=== PATIENT | female | born 1990 | race Two or more races ===

== ENCOUNTER 2018-08-02 01:15 | Inpatient (IN) | payer OTHER ==
[~2018-08-02] VITALS: Ht 160 cm; Wt 81.6 kg
[2018-08-02 04:30] VITALS: BP 101/59
--- NOTE | 2018-08-02 04:30 | NUR ---
TELE 1 RN NOTE PT ARRIVED FROM [place] A DIRECT ADMIT. A/O X 4, NO SOB, NO DISTRESS OR DISCOMFORT NOTED. DENIES PAIN AT THIS TIME. RT BREAST WITH REDNESS NOTED. TOOK PICTURE AND PLACE IT IN THE CHART. PT IS ALSO NOTED WITH HIGH FEVER 101.8. BODY COOLING MEASURE APPLIED. TABLE FAN PROVIDED. WAITING FOR MATTHEW VEGETABLE THINNER ADMITTING ORDERS. CHARGE NURSE PAGED THE VEGETABLE THINNER FOR THE ORDERS. ORIENTED THE PT TO HER ROOM. SIDE RAILS UP X 2 AND CALL LIGHT WITHIN REACH. CONTINUE TO MONITOR HER.
--- NOTE | 2018-08-02 04:30 | NUR ---
ADVERTISING PRODUCTION MANAGER NOTE ON TELE MONITOR S TECH 113.
[2018-08-02] MEDS ORDERED: MORPHINE SULFATE INJ 2 MG/ML DISP.SYRIN IV PRN (05:00)
[2018-08-02] MEDS ORDERED: ZOLPIDEM TARTRATE 5 MG TABLET PO PRN (05:00)
[2018-08-02] MEDS ORDERED: HYDROCODONE/APAP 5/325MG 1 EACH TABLET PO PRN (05:00)
[2018-08-02] MEDS ORDERED: MAGNESIUM HYDROXIDE 30 ML UDC PO PRN (05:00)
[2018-08-02] MEDS ORDERED: Z GUARD REMEDY 2 OZ OINT TP PRN (05:00)
[2018-08-02] MEDS ORDERED: ONDANSETRON HCL/PF 4 MG/2 ML VIAL IVP PRN (05:00)
[2018-08-02] MEDS ORDERED: MAG HYDROX/AL HYDROX/SIMETH 30 ML UDC PO PRN (05:00)
[2018-08-02] MEDS ORDERED: HYDROCODONE/APAP 10/325MG 1 EA TABLET PO PRN (05:00)
--- NOTE | 2018-08-02 05:10 | NUR ---
ASIM RN NOTE ADMITTED DIRECT ADMIT PT FROM [place] WITH THE DX OF R/O MENINGITIS BY BENJAMIN CASTRO. PT SHOW NO DISTRESS. TEMP CAME DOWN TO 99.6. CONTINUE TO MONITOR HER.
[2018-08-02 06:24] LABS: BASOPHILS % (AUTO) 0.1 % (0.0-2.0); EOSINOPHILS % (AUTO) 0.2 % (0.0-6.0); HEMATOCRIT 37 % (33-45); HEMOGLOBIN 12.7 g/dL (11.5-14.8); LYMPHOCYTES % (AUTO) 10.6 % (20.0-44.0); MEAN CORPUSCULAR HEMOGLOBIN 30 PG (26.0-33.0); MEAN CORPUSCULAR HGB CONC 35 g/dl (31.0-36.0); MEAN CORPUSCULAR VOLUME 88 fL (82-100); MONOCYTES # (AUTO) 0.7 /CMM (0.1-1.30); MONOCYTES % (AUTO) 7.6 % (2.0-12.0); NEUTROPHILS # (AUTO) 7.3 /CMM (1.8-8.9); NEUTROPHILS % (AUTO) 81.5 % (43.0-81.0); PLATELET COUNT (AUTO) 198 /CMM (150-450); RDW COEFFICIENT OF VARIATION 11.5 (11.5-15.0); RED BLOOD CELL COUNT(AUTO) 4.19 MIL/uL (4.0-5.2)
[2018-08-02 06:33] LABS: CALCIUM, SERUM 8.2 mg/dL (8.5-10.1); CREATININE 0.7 mg/dL (0.6-1.3); POTASSIUM 3.4 mmol/L (3.5-5.1)
[2018-08-02 06:46] LABS: ALBUMIN 3.5 g/dL (3.4-5.0); BILIRUBIN,TOTAL 0.4 mg/dL (0.2-1.0); MAGNESIUM 1.8 mg/dL (1.8-2.4); PHOSPHORUS 3.5 mg/dL (2.5-4.9); TOTAL PROTEIN, SERUM 7.3 g/dL (6.4-8.2)
[2018-08-02 06:48] LABS: THYROID STIMULATING HORMONE 1.004 uIU/mL (0.358-3.74)
--- NOTE | 2018-08-02 07:05 | NUR ---
ASIM RN NOTE REPORT GIVEN TO BETTY SANDHU FOR CONTNUE TO CARE. AND GIVE ATB ORDERED. ALSO GET THE CONSENT FOR MRI.
--- NOTE | 2018-08-02 07:09 | NUR ---
MRI APPROVED, TEXTED SHEAR HELPER FOR ETA.
[2018-08-02] MEDS: IV NS 0.9% 1,000 ML IV PRN (07:13)
[2018-08-02 08:00] VITALS: BP 92/58
[2018-08-02] MEDS ORDERED: CEFTRIAXONE 1 G in IV D5W 50 ML IV SCH (08:00)
[2018-08-02] MEDS ORDERED: GADODIAMIDE 5 MMOL/10 ML VIAL IJ ONE (08:36)
[2018-08-02] MEDS: PANTOPRAZOLE 40 MG TABLET.DR PO SCH (09:18)
[2018-08-02] MEDS: ACETAMINOPHEN 325 MG TABLET PO PRN ×3 (09:33→23:02)
[2018-08-02] MEDS ORDERED: FEE PK DOSING 1 MIN EA MC ONE (09:36)
[2018-08-02] MEDS: ACYCLOVIR IV 500 MG in IV D5W 100 ML IV SCH ×2 (11:41→18:41)
[2018-08-02 12:00] VITALS: BP 100/56
--- NOTE | 2018-08-02 12:24 | NUR ---
RN Note: (ALLERGY TO VANCOMYCIN/VANCOMYCIN ADMINISTRATION) PATIENT VERBALIZE THAT SHE DEVELOPS ITCHING, BURNING & RASH GENERALIZED BODY, WAS VERY DISCOMFORT AFTER VANCOMYCIN STARTED AT [facility] BEFORE TRANSFER TO [facility]. BENADRYL WAS GIVEN, WAS EFFECTIVE. DR. FLAHERTY IS AWARE ABOUT ALLERGY BY [facility] PHARMACIST, PER LUZ BOSTON TO GIVE MD ORDERED. WILL ADMINISTER BENADRYL PRIOR TO VANCO ADMINISTRATION. WILL MONITOR CLOSELY FOR ADVERSE RXNS. PATIENT IS AGREE WITH PLAN.
[2018-08-02] MEDS: diphenhydrAMINE HCL ELIX 25 MG/10 ML UDC PO PRN ×2 (12:35→21:45)
[2018-08-02] MEDS ORDERED: VANCOMYCIN 1.25 GM in IV D5W 500 ML IV SCH ×4 (13:00)
[2018-08-02] MEDS ORDERED: POTASSIUM CHLORIDE 20 MEQ TAB.PRT.SR PO SCH (14:00)
--- NOTE | 2018-08-02 14:00 | NUR ---
TEL nurse , no signs of reaction noted from vancomycin at present time, made patient comfortable call light with in reach
[2018-08-02 16:00] VITALS: BP_SYST 102; BP_SYST 105; BP_DIAS 69
[2018-08-02] MEDS: CEFTRIAXONE 2 G in IV D5W 100 ML IV SCH (17:54)
--- NOTE | 2018-08-02 18:21 | NUR ---
RN NOTE: PATIENT REMAINS ALERT AWAKE ORIENTED X 4. ON ROOM AIR, NO BREATHING DIFFICULTY NOTED. DISCOMFORT TO RIGHT BREAST & NIPPLE. NO OPEN SKIN NOTED. REDNESS ONLY. MRI LUMBER DONE TODAY, PLAN FOR LUMBER PUNCTURE TOMORROW. VANCOMYCIN IV TOLERATED WELL. NO ADVERSE REACTION NOTED. MRSA SWAB & URINE SAMPLE COLLECTED & SEND TO LAB FOR PREG TEST, URINALYSIS. URINE CULTURE. HIGH TEMP, TYLENOL WAS GIVEN ORDERED. NOTED EFFECTIVE. CALL LIGHT WITHIN REACH. WILL CONTINUE TO MONITOR.
[2018-08-02 18:44] LABS: APPEARANCE,URINE SL CLOUDY (CLEAR); BILIRUBIN,URINE NEGATIVE (NEGATIVE); BLOOD, URINE TRACE-INTA Ery/uL (NEGATIVE); COLOR,URINE YELLOW (YELLOW); KETONES,URINE NEGATIVE (NEGATIVE); LEUKOCYTE ESTERASE ,URINE TRACE (NEGATIVE); NITRITE, URINE NEGATIVE (NEGATIVE); PH,URINE 6.5 (5.0-8.0); PROTEIN,URINE NEGATIVE (NEGATIVE); UGLUCOSE NEGATIVE (NEGATIVE); UROBILINOGEN,URINE 0.2 EU/dL (0.2)
[2018-08-02 19:29] LABS: BACTERIA,URINE Few /HPF (None Seen); RBC,URINE 0-2 /HPF (0-2); SQUAMOUS EPITHELIAL CELL,UR Few /HPF (None Seen)
[2018-08-02 20:00] VITALS: BP 98/44
--- NOTE | 2018-08-02 20:00 | NUR ---
TELE 1 RN NOTE PT IN BED ASLEEP, EASILY AROUSABLE. PT GAVE CONSENT FOR AM PROCEDURE. NO DISTRESS OR DISSCOMFORT NOTED. DENIES PAIN. LAC # 20 G S/L INTACT AND PATENT. ALL NEEDS ATTENDED. AT BED SIDE. SIDE RAILS UP X 2 AND CALL LIGHT WITHIN REACH. VSS. CONTINUE TO MONITOR HER. NO FEVER AT THIS TIME. ON TELE MONITOR ST HR 112.
[2018-08-02] MEDS: VANCOMYCIN 1 GM in IV D5W 250 ML IV SCH (21:43)
--- NOTE | 2018-08-02 21:45 | NUR ---
TELE 1 RN NOTE VANCO HUNGED AND ALSO GIVEN BENADRYL 25 MG PO FOR COMFORT FROM VANCO PER PT'S REQUEST.
--- NOTE | 2018-08-02 23:03 | NUR ---
TELE 1 RN NOTE PT IS RUNNING FEVER 103.1. BODY COOLING MEASURES APPLIED ALSO GIVEN TYLENOL 650 MG PO. CONTINUE TO MONITOR HER.
[2018-08-03] VITALS: BP 94/50
[2018-08-03] MEDS: ACYCLOVIR IV 500 MG in IV D5W 100 ML IV SCH ×3 (02:12→18:43)
[2018-08-03] MEDS: IV NS 0.9% 1,000 ML IV PRN (02:20)
[2018-08-03 04:00] VITALS: BP 100/58
[2018-08-03] MEDS: VANCOMYCIN 1 GM in IV D5W 250 ML IV SCH ×2 (05:00→13:00)
--- NOTE | 2018-08-03 05:23 | NUR ---
TELE 1 RN NOTE PT REFUSED PARAG ATShasha, STATES "I AM HAVING TEMP WITH THIS MED, KIND OF ALLERGIC REACTION". HELD THE MED AT THIS TIME. CHARGE NURSE ALSO MADE AWARE OF THAT.
[2018-08-03] MEDS: CEFTRIAXONE 2 G in IV D5W 100 ML IV SCH ×2 (05:25→18:42)
--- NOTE | 2018-08-03 06:59 | NUR ---
TELE 1 RN NOTE PT IN BED ASLEEP, EASILY AROUSABLE, NO DISTRESS OR DISCOMFORT NOTED, DENIES PAIN. NO FEVER NO ALL NEEDS ATTENDED. WILL ENDORSE TO DAY SHIFT NURSE FOR CONTINUE TO CARE.
[2018-08-03 07:10] LABS: CALCIUM, SERUM 8.6 mg/dL (8.5-10.1); CREATININE 0.7 mg/dL (0.6-1.3); MAGNESIUM 1.9 mg/dL (1.8-2.4); PHOSPHORUS 3.5 mg/dL (2.5-4.9); POTASSIUM 3.6 mmol/L (3.5-5.1)
[2018-08-03 07:38] LABS: EOSINOPHILS % (AUTO) 0.8 % (0.0-6.0); HEMATOCRIT 38 % (33-45); HEMOGLOBIN 12.7 g/dL (11.5-14.8); LYMPHOCYTES # (AUTO) 1.8 /CMM (0.8-4.8); LYMPHOCYTES % (AUTO) 17.4 % (20.0-44.0); MEAN CORPUSCULAR HEMOGLOBIN 30 PG (26.0-33.0); MEAN CORPUSCULAR HGB CONC 34 g/dl (31.0-36.0); MEAN CORPUSCULAR VOLUME 88 fL (82-100); MONOCYTES % (AUTO) 10.1 % (2.0-12.0); NEUTROPHILS # (AUTO) 7.2 /CMM (1.8-8.9); NEUTROPHILS % (AUTO) 71.7 % (43.0-81.0); PLATELET COUNT (AUTO) 200 /CMM (150-450); RDW COEFFICIENT OF VARIATION 11.5 (11.5-15.0); RED BLOOD CELL COUNT(AUTO) 4.28 MIL/uL (4.0-5.2); WHITE BLOOD COUNT (AUTO) 10.1 K/uL (4.3-11.0)
[2018-08-03 08:00] VITALS: BP 130/62
--- NOTE | 2018-08-03 08:15 | NUR ---
NOTE PT IN BED ASLEEP, EASILY AROUSABLE. AWAKE AN ORIENTED X3, ON ROOM AIR, BREATHING EVEN AND UNLABORED. NO SIGN OF DISTRESS, NO COMPLAINTS DISCOMFORT NOTED. PATIENT AMBULATORY. AFEBRILE AT 98.5 AT THIS TIME.ON TELEMONITOR, HR AT 90. LAC # 20 G S/L INTACT AND PATENTON FLUSHING. ENCOURAGED VERBALIZATION OF FEELINGS AND CONCERN. SIDE RAILS UP X 2. CALL LIGHT WITHIN REACH. WILL CONTINUE TO MONITOR
[2018-08-03] MEDS: PANTOPRAZOLE 40 MG TABLET.DR PO SCH (09:14)
[2018-08-03] MEDS ORDERED: LIDOCAINE HCL/PF 1% 30 ML SDV ONE (09:58)
--- NOTE | 2018-08-03 10:30 | NUR ---
RN NOTES PATIENT BROUGHT OT RADIOLOGY DEPARTMENT FOR THE SCHEDULED LUMBAR PUNCTURE. PATIENT ACCOMPANIED BT 2 RADIOLOGY PERSONNEL, NURSE AND .PATIENT ON ROOM AIR, NO COMPLAINTS OF DISTRESS OF ANY KIND. GIVEN MASK TO BE PLACED ON TRANSPORT.
--- NOTE | 2018-08-03 11:22 | NUR ---
RN NOTES PATIENT CAME BACKED, S/P LUMBAR PUNCTURE. LYING FLAT COMFORTABLY ON BED. ON STABLE CONDITION. BREATHING UNLABORED. NO COMPLAINTS OF PAIN. ENCOURAGED TO LIE FLAT IN BED FOR AT LEAST 2 HOURS. PATIENT COOPERATIVE. 4 TUBES OF CSF SAMPLES PROPERLY LABELED BROUGHT TO THE LABORATORY FOR CSF CULTURE AND GRAM STAINING.
[2018-08-03 12:00] VITALS: BP 107/60
[2018-08-03 12:16] LABS: CSF GLUCOSE 78 mg/dL (40-70); CSF PROTEIN 28.3 mg/dL (15-45)
--- NOTE | 2018-08-03 13:00 | NUR ---
RN NOTES PATIENT REFUSED THE ADMINISTRATION OF VANCOMYCIN. PER PATIENT MEDICINE CAUSES ITCH AND RASHES ON THE BODY. INFORMED DR HALEY AND ATTENDING - YAJAIRA LOZANO. RISK AND BENEFITS EXPLAINED TO THE PATIENT.
[2018-08-03 16:00] VITALS: BP 113/62
--- NOTE | 2018-08-03 17:00 | NUR ---
RN NOTES SEEN AND EXAMINED BY DR. HALEY. UPDATED ON THE PATIENT CONDITION AND INFORMED MD THAT PATIENT HAS BEEN REFUSING ADMINISTRATION OF VANCOMYCIN.
--- NOTE | 2018-08-03 19:33 | NUR ---
RN NOTES ENDORSED PATIENT FOR CONTINUITY OF CARE. NO ACUTE CHANGES WITHIN THE SHIFT. BREATHING UNLABORED. AFEBRILE. NO COMPLAINTS OF ANY KIND OF DISTRESS. ROCEPHIN STILL RUNNING. ALL NEEDS ATTENDED. CALL LIGHT WITHIN EASY REACH.BED LOW AND LOCKED
--- NOTE | 2018-08-03 19:45 | NUR ---
OPEN HEARTH LABORER NOTES: RECEIVED PT ON BED ALERT, AWAKE AND ORIENTED X4. ABLE TO MAKE NEEDS KNOWN. NO ACUTE DISTRESS NOTED. NO COMPLAINTS OF PAIN OR DISCOMFORT. ON ROOM AIR, SATURATING WELL. BREATHING EVEN AND UNLABORED WITH NORMAL RESPIRATIONS. ON TELE MONITOR SINUS RHYTHM HR 82BPM. IV ON LEFT FOREARM #24 INTACT AND PATENT, WITH IVF NS RUNNING AT 75ML/HR, INFUSING WELL. KEPT CLEAN, DRY AND COMFORTABLE. CALL LIGHT PLACED WITHIN REACH. SAFETY AND FALL PRECAUTIONS OBSERVED AND MAINTAINED. WILL CONTINUE TO MONITOR PT.
[2018-08-03 20:00] VITALS: BP 95/67
[2018-08-04] VITALS: BP 100/62
[2018-08-04] MEDS: IV NS 0.9% 1,000 ML IV PRN (00:03)
[2018-08-04 01:32] VITALS: BP 91/56
[2018-08-04 01:33] VITALS: BP 100/62
[2018-08-04 04:00] VITALS: BP 98/64
--- NOTE | 2018-08-04 06:30 | NUR ---
HEALTH INFORMATICS SPECIALIST NOTES: NO CHANGES NOTED THROUGHOUT THE SHIFT. DENIES PAIN AND DISCOMFORT AT THIS TIME. ON ROOM AIR, SATURATING WELL. SINUS RHYTHM ON TELE MONITOR HR 62BPM. ALL DUE MEDS GIVEN ORDERED AND WELL TOLERATED. KEPT CLEAN, DRY AND COMFORTABLE. SAFETY AND FALL PRECAUTIONS OBSERVED. CALL LIGHT PLACED WITHIN REACH. WILL ENDORSE TO DAY SHIFT NURSE FOR CONTINUITY OF CARE.
[2018-08-04] MEDS: PANTOPRAZOLE 40 MG TABLET.DR PO SCH (06:37)
[2018-08-04 06:41] LABS: CALCIUM, SERUM 8.7 mg/dL (8.5-10.1); CREATININE 0.6 mg/dL (0.6-1.3); PHOSPHORUS 4.4 mg/dL (2.5-4.9); POTASSIUM 3.9 mmol/L (3.5-5.1)
[2018-08-04 07:08] LABS: BASOPHILS % (AUTO) 0.4 % (0.0-2.0); EOSINOPHILS % (AUTO) 3.3 % (0.0-6.0); HEMATOCRIT 34 % (33-45); HEMOGLOBIN 11.6 g/dL (11.5-14.8); LYMPHOCYTES % (AUTO) 43.4 % (20.0-44.0); MEAN CORPUSCULAR HEMOGLOBIN 30 PG (26.0-33.0); MEAN CORPUSCULAR HGB CONC 34 g/dl (31.0-36.0); MEAN CORPUSCULAR VOLUME 88 fL (82-100); MONOCYTES # (AUTO) 0.5 /CMM (0.1-1.30); MONOCYTES % (AUTO) 11.1 % (2.0-12.0); NEUTROPHILS # (AUTO) 1.9 /CMM (1.8-8.9); NEUTROPHILS % (AUTO) 41.8 % (43.0-81.0); PLATELET COUNT (AUTO) 175 /CMM (150-450); RDW COEFFICIENT OF VARIATION 11.7 (11.5-15.0); RED BLOOD CELL COUNT(AUTO) 3.89 MIL/uL (4.0-5.2); WHITE BLOOD COUNT (AUTO) 4.6 K/uL (4.3-11.0)
[2018-08-04 08:00] VITALS: BP 98/55
--- NOTE | 2018-08-04 08:03 | NUR ---
RN NOTES: PT IN BED ASLEEP, EASILY AROUSABLE. AWAKE AN ORIENTED X4, ON ROOM AIR, BREATHING EVEN AND UNLABORED. NO SIGN OF DISTRESS, NO COMPLAINTS DISCOMFORT NOTED. PATIENT AMBULATORY. AFEBRILE AT 97.5 AT THIS TIME.ON TELEMONITOR, HR AT 67BPM. L FOREARM # 24 G INTACT AND PATENT ON FLUSHING. WITH ONGOING IVF NS RUNNING AT 75CC/HR. ENCOURAGED VERBALIZATION OF FEELINGS AND CONCERN. SIDE RAILS UP X 2. CALL LIGHT WITHIN REACH. BED LOW AND LOCKED. WILL CONTINUE TO MONITOR
--- NOTE | 2018-08-04 10:57 | NUR ---
RN NOTES SEEN AND EXAMINED BY DR. BAUTISTA WITH ORDERS TO TRANSFER ACUITY FROM TELEMETRY TO MED-SURG. ORDER NOTED AND CARRIED OUT
[2018-08-04] MEDS: ACETAMINOPHEN 325 MG TABLET PO PRN (12:19)
--- NOTE | 2018-08-04 13:07 | NUR ---
RN NOTES SEEN AND EXAMINE BY YAJAIRA STILL MD WITH ORDER TO DISCHARGE PATIENT. ORDER NOTED AND CARRIED OUT.
--- NOTE | 2018-08-04 13:30 | NUR ---
RN NOTES PATIENT DISCHARGE AT THIS TIME. EXIT CARE DONE. ALL QUESTION AND CONCERNS ADDRESSED AND ATTENDED APPROPRIATELY. PICTURES TAKEN AND FILED. ALL BELONGINGS ACCOUNTED FOR AND GIVEN BACK TO PATIENT. ALL DISCHARGE MEDICATION GIVEN TO PATIENT. AT BEDSIDE DURING INSTRUCTION. PATIENT BROUGHT OUT TO HOSPITAL ROOM VIA WHEELCHAIR BY RN.
[2018-08-06 09:20] LABS: *WEST NILE VIRUS, IgG, SERUM Positive (Negative)
[2018-08-06 11:14] LABS: *WEST NILE VIRUS, IgM, SERUM Negative (Negative)
== END 2018-08-04 15:00 | disposition home or self-care (01) | DRG 720 ==
LOC: TELE1 04:20 → TELE-TD 06:31 → TELE1 09:49 → MEDSG1 08-04 10:56
PROVIDERS: ADMIT Registered Nurse; ATTEND Registered Nurse
PROC: 009U3ZX Drainage of Spinal Canal, Percutaneous Approach, Diagnostic (ICD-10-PCS; principal; 2018-08-03)
PROC: B01BYZZ Fluoroscopy of Spinal Cord using Other Contrast (ICD-10-PCS; principal; 2018-08-03)
DX: A41.9 Sepsis, unspecified organism (principal); G06.1 Intraspinal abscess and granuloma; G03.9 Meningitis, unspecified; L02.212 Cutaneous abscess of back [any part, except buttock and flank]; E87.6 Hypokalemia; N61.0 Mastitis without abscess; Z16.21 Resistance to vancomycin
CPT/HCPCS: 36415; 62270; 71045-TC; 72157-TC; 72158-TC; 80048-TC; 80053-TC; 80061-TC; 80202-TC; 81000-TC; 83540-TC; 83605-TC; 83735-TC; 84100-TC; 84443-TC; 84703-TC; 85025-TC; 85652-TC; 85730-TC; 86788; 86789; 87040-TC; 87070-TC; 87081-TC; 87086-TC; 87400; 87536; 87806; 88305-TC; 88312-TC; 89051-TC; J0133; J0696; J3370; J3490; J7030; J7060; Q0163; Z7610

== ENCOUNTER 2019-06-25 12:53 | Emergency (ER) | payer OTHER ==
[~2019-06-25] VITALS: Ht 160 cm; Wt 83.0 kg
--- NOTE | 2019-06-25 13:30 | NUR ---
PT BIB SELF C/O LOWER ABDOMINAL PAIN, PT IS AAOX4, NOT IN RESPIRATORY DISTRESS, V/S STABLE, KEPT RESTED AND COMFORTABLE, WILL CONTINUE TO MONITOR.
--- NOTE | 2019-06-25 13:54 | NUR ---
URINE SPECIMEN COLLECTED AND SENT TO LAB.
[2019-06-25 14:52] LABS: BASOPHILS % (AUTO) 0.4 % (0.0-2.0); EOSINOPHILS % (AUTO) 0.2 % (0.0-6.0); HEMATOCRIT 38 % (33-45); LYMPHOCYTES # (AUTO) 0.4 /CMM (0.8-4.8); LYMPHOCYTES % (AUTO) 8.1 % (20.0-44.0); MEAN CORPUSCULAR HGB CONC 34 g/dl (31.0-36.0); MEAN CORPUSCULAR VOLUME 86 fL (82-100); MONOCYTES # (AUTO) 0.3 /CMM (0.1-1.30); MONOCYTES % (AUTO) 5.1 % (2.0-12.0); NEUTROPHILS # (AUTO) 4.7 /CMM (1.8-8.9); NEUTROPHILS % (AUTO) 86.2 % (43.0-81.0); PLATELET COUNT (AUTO) 220 /CMM (150-450); RED BLOOD CELL COUNT(AUTO) 4.44 MIL/uL (4.0-5.2); WHITE BLOOD COUNT (AUTO) 5.4 K/uL (4.3-11.0)
[2019-06-25 14:59] LABS: APPEARANCE,URINE Clear (CLEAR); BILIRUBIN,URINE Negative (NEGATIVE); BLOOD, URINE Large Ery/uL (NEGATIVE); COLOR,URINE Yellow (YELLOW); KETONES,URINE Negative (NEGATIVE); LEUKOCYTE ESTERASE ,URINE Negative (NEGATIVE); NITRITE, URINE Negative (NEGATIVE); PH,URINE 6.5 (5.0-8.0); PROTEIN,URINE Negative (NEGATIVE); UGLUCOSE Negative (NEGATIVE); UROBILINOGEN,URINE 0.2 EU/dL (0.2)
[2019-06-25 15:10] LABS: BACTERIA,URINE Rare /HPF (None Seen); RBC,URINE 21-50 /HPF (0-2); SQUAMOUS EPITHELIAL CELL,UR Few /HPF (None Seen); WBC,URINE 0-2 /HPF (0-3)
--- NOTE | 2019-06-25 15:15 | NUR ---
TECH AT BEDSIDE FOR US PELVIC
[2019-06-25 15:21] LABS: CALCIUM, SERUM 8.4 mg/dL (8.5-10.1); CREATININE 0.6 mg/dL (0.6-1.3); POTASSIUM 4.2 mmol/L (3.5-5.1)
--- NOTE | 2019-06-25 16:53 | NUR ---
Patient discharged to home in stable condition. Written and verbal after care instructions given. Patient verbalizes understanding of instruction.
[2019-06-25 16:54] VITALS: BP 104/66
== END 2019-06-25 16:58 | disposition home or self-care (01) ==
LOC: ER 12:57
DX: O20.8 Other hemorrhage in early pregnancy (principal); O26.891 Other specified pregnancy related conditions, first trimester; Z32.01 Encounter for pregnancy test, result positive; Z88.1 Allergy status to other antibiotic agents
CPT/HCPCS: 36415; 76856-TC; 80048-TC; 81000-TC; 84702-TC; 84703-TC; 85025-TC; 87491; 87591